=== PATIENT | male | born 1945 | race Caucasian/White ===

== ENCOUNTER → 2017-07-11 | Outpatient (CLI) | payer OTHER, MEDICARE | LOC: BHFA 14:00 | PROVIDERS: ATTEND Internal Medicine Interventional Cardiology | DX: R94.31 Abnormal electrocardiogram [ECG] [EKG] (principal); I25.10 Atherosclerotic heart disease of native coronary artery without angina pectoris; R06.02 Shortness of breath; R53.83 Other fatigue | CPT/HCPCS: 78452; 93017; A9500; J2785 ==

== ENCOUNTER → 2017-07-17 | Outpatient (CLI) | payer OTHER, MEDICARE | LOC: BHFA 14:45 | PROVIDERS: ATTEND Internal Medicine Cardiovascular Disease | DX: I25.10 Atherosclerotic heart disease of native coronary artery without angina pectoris (principal) ==

== ENCOUNTER 2017-08-08 07:26 | Day surgery (SDC) | payer OTHER, MEDICARE ==
[2017-08-08] MEDS ORDERED: FAMOTIDINE 20 MG TAB PO ONE (07:31)
[2017-08-08] MEDS ORDERED: diphenhydrAMINE 25 MG CAP PO ONE ×2 (07:31→07:57)
[2017-08-08] MEDS ORDERED: DIAZEPAM 5 MG TAB PO ONE (07:31)
[2017-08-08] MEDS ORDERED: NS 1,000 ML IV ONE (07:31)
[2017-08-08] MEDS ORDERED: ASPIRIN EC 325 MG TAB PO ONE ×2 (07:31→07:57)
--- NOTE | 2017-08-08 07:53 | CPEKG ---
Heart Rate: 56 RR Interval: 1071 P-R Interval: 132 QRSD Interval: 116 QT Interval: 436 QTC Interval: 421 P Vass: 35 QRS Vass: -19 T Wave Vass: -51 EKG Severity - ABNORMAL ECG - EKG Impression: SINUS RHYTHM EKG Impression: PVCS EKG Impression: NONSPECIFIC INTRAVENTRICULAR CONDUCTION DELAY EKG Impression: LOW VOLTAGE IN FRONTAL LEADS EKG Impression: CONSIDER INFERIOR INFARCT EKG Impression: BORDERLINE R WAVE PROGRESSION, ANTERIOR LEADS EKG Impression: COMPARED WITH 05/10/2013, VENTRICULAR ECTOPY NOW PRESENT Electronically Signed By: Purvi Jin 08-Aug-2017 13:38:49
[2017-08-08] MEDS ORDERED: DIAZEPAM 5 MG TAB ONE (07:57)
[2017-08-08] MEDS ORDERED: FAMOTIDINE 20 MG TAB ONE (07:57)
[2017-08-08 08:05] LABS: PLATELET COUNT 104 10^3/uL (150-400)
[2017-08-08 08:13] LABS: INR 1.04 (0.83-1.16); PROTIME(PATIENT) 13.8 SEC (12.0-15.0)
[2017-08-08] MEDS ORDERED: fentaNYL 100 MCG/2 ML INJ ONE (09:34)
[2017-08-08] MEDS ORDERED: MIDAZOLAM 2 MG/2 ML VIAL ONE (09:34)
[2017-08-08] MEDS ORDERED: LIDOCAINE 1% 300 MG/30 ML SDV ONE (09:34)
[2017-08-08] MEDS ORDERED: IOPAMIDOL (ISOVUE-370) 150 ML BTL IV ONE (09:35)
--- NOTE | 2017-08-08 09:50 | PDPROPOC ---
Sedation Plan of Care Sedation Plan of Care: vital signs stable, mental status noted, patient educated of risks, benefits, alternatives, patient can tolerate sedation ASA Classification: ASA 3 Planned drugs: fentanyl, midazolam Mallampati Score: Class 3 Mallampati Reference Image: Patient passed 3-3-2 rule?: No (short neck, obese difficult airway)
--- NOTE | 2017-08-08 09:52 | PDHPUP ---
History & Physical Update H&P update statement: This history and physical update is based on an assessment of the patient which was completed after admission or registration (within 24 hours), but prior to the surgery/procedure. H&P changes: patient with significant right leg pain consistent with lifestyle limiting claudication will still set up for peripheral angiography and possible correctional officer captain right femoral approach so this can be accomplished
--- NOTE | 2017-08-08 10:21 | PDDXCAT ---
Diagnostic Cath Note - . Date: 08/08/17 Human Projectile: Jose J Indication: CCC Class III and IV angina on medical treatment, other (Shortness of breath, FARAH, possible claudication in right lower extremity) - Procedure Access: right groin Procedure: left heart catheterization, right heart catheterization - Materials Left Heart Cath size: 5F Left Heart Cath materials: standard multipack (JL4, JR4, pigtail) Right Heart Cath size: 7F Right Heart Cath materials: PWP catheter - Findings-Left Heart Catheterization LM: 2.5mm in size. 40% stenosis in the mid left main. It bifurcates into an LAD and circumflex system. LAD: The LAD is small, approx 2mm in size. The LAD is 100% occluded after the first septal and diagonal branch. LCX: The left circumflex continues as a small obtuse marginal, which is grafted wih evidence of competitive flow and retrograde filling of the SVG to the aorta. The circumflex proper is 2mm in size and is distally quite small. There are left to left collaterals to distal PLV branches. There is LEN III flow throughout the left circumflex system. RCA: The RCA is 2mm in size. It is completly occluded after a conus branch and is severely diseased. LEN 0 flow. rSVG: The SVG to the circ OM system is widely patent with a good anastomosis and is widely patent. The SVG to the distal RCA/PDA is widely patent with LEN III flow. MOTA: The MOTA to the LAD diagonal system is widely patent. With a good anastomosis and ITMI III flow to the very small LAD and diagonal system. There is a distal left to right collateral to the RCA from the distal LAD. EDP: 17mmHg, no evidence of a gradient upon pull back of the aortic valve. LVEF: The EF is 35%. 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 There is evidence of 2+ mitral regurgitation. - Findings-Right Heart Catheterization RA: Pressure: 15/15 mean: 13mmHg RV: Pressure: 10/10. End diastolic pressure is 15mmHg. PA: Pressure: 41/26. Saturation: 71.1% PAOP: 28mmHg AO: 96.3% CO: 5.08 L/min CI: 2.32 L/min/m2 Complications: None. Estimated blood loss: <50ml Closure method: Angioseal Assessment: The patient has severe [place] vessel coronary disease with patent MOTA, SVG to Circ OM, RCA/PDA with occluded SVG to posterolateral branches. The patient has an ischemic cardiomyopathy with basal inferior aneurysm and may benefit from a consultation with Dr. Natalio Aguirre to tune up medical management as well as consideration for placement of an AICD as the patient meets MADIT II criteria for AICD if the EF is confirmed to be less than 35%. Intervention: The patient underwent unilateral lower extremity runoff angiography with the use of a sheath placed in the right common femoral artery. The SFA and profunda femoral are widely patent with LEN III flow. the popiteal artery is patent to the trifurcation below the knee with patent anterior tibial, posterior tibial, and peroneal arteries all with antegrade flow. There are diffuse luminal irregularities consistent with underlying atherosclerosis. No flow limiting obstruction is identified to the level of the distal popiteal and trifurcation blood vessels. Patient Problems: Problems Problem Status Onset Coronary artery bypass grafting Active
[2017-08-08] MEDS ORDERED: ONDANSETRON 4 MG/2 ML VIAL IVP PRN (11:34)
[2017-08-08] MEDS ORDERED: OXYCODONE/APAP 5/325 TAB PO PRN (11:34)
[2017-08-08] MEDS ORDERED: ATROPINE SULFATE 1 MG/10 ML SYR IVP PRN (11:34)
[2017-08-08] MEDS ORDERED: HYDROCODONE/APAP 5/325 TAB PO PRN (11:34)
[2017-08-08] MEDS ORDERED: NITROGLYCERIN 0.4 MG BTL SL PRN (11:34)
== END 2017-08-08 16:07 | disposition home or self-care (01) ==
LOC: FCATH 07:26
PROVIDERS: ATTEND Internal Medicine Cardiovascular Disease
DX: I25.119 Atherosclerotic heart disease of native coronary artery with unspecified angina pectoris (principal); I25.5 Ischemic cardiomyopathy; R06.09 Other forms of dyspnea; I10 Essential (primary) hypertension; E11.9 Type 2 diabetes mellitus without complications; G47.33 Obstructive sleep apnea (adult) (pediatric); M50.10 Cervical disc disorder with radiculopathy, unspecified cervical region; Z95.1 Presence of aortocoronary bypass graft
CPT/HCPCS: C1760; J1644; J2250; J3010; Q9967

== ENCOUNTER → 2017-08-16 | Outpatient (CLI) | payer OTHER, MEDICARE | LOC: BHFA 08:00 | PROVIDERS: ATTEND Internal Medicine Interventional Cardiology | DX: I25.10 Atherosclerotic heart disease of native coronary artery without angina pectoris (principal) | CPT/HCPCS: 78472; A9560 ==

== ENCOUNTER → 2017-09-13 | Outpatient (CLI) | payer OTHER, MEDICARE | LOC: FIMAGING 15:36 | PROVIDERS: ATTEND Internal Medicine Cardiovascular Disease | DX: R05 Cough (principal); R06.02 Shortness of breath; R42 Dizziness and giddiness ==